=== PATIENT | male | born 1955 | race Hispanic/Latino ===

== ENCOUNTER 2023-08-13 11:25 | Emergency (ER) | payer OTHER ==
[~2023-08-13] VITALS: Ht 172.7 cm; Wt 88.9 kg
[2023-08-13 13:01] LABS: BASOPHILS # (AUTO) 0.04 K/uL (0.00-0.20); BASOPHILS % (AUTO) 0.4 % (0.0-5.0); EOSINOPHILS # (AUTO) 0.16 K/uL (0.00-0.70); EOSINOPHILS % (AUTO) 1.6 % (0.0-8.0); IMMATURE GRANULOCYTE ABSOLUTE 0.08 K/uL (0-1); LYMPHOCYTES # (AUTO) 1.5 K/uL (1.0-4.8); LYMPHOCYTES % (AUTO) 15.8 % (21.0-51.0); MEAN CORPUSCULAR HEMOGLOBIN 29.4 pg (27.0-33.0); MEAN CORPUSCULAR HGB CONC 33.9 g/dL (32.0-36.0); MEAN CORPUSCULAR VOLUME 86.6 fL (79-99); MONOCYTES # (AUTO) 0.8 K/uL (0.1-1.0); MONOCYTES % (AUTO) 7.9 % (3.0-13.0); NEUTROPHILS # (AUTO) 7.2 K/uL (1.8-7.7); NEUTROPHILS % (AUTO) 73.5 % (40.0-77.0); PLATELET COUNT (AUTO) 147 K/uL (130-400); RED BLOOD CELL COUNT(AUTO) 5.89 MIL/uL (4.50-6.20); RED CELL DISTRIBUTION WIDTH 13.2 % (11.0-15.5); WHITE BLOOD COUNT (AUTO) 9.7 K/uL (4.8-10.8)
[2023-08-13 13:12] LABS: APPEARANCE,URINE CLEAR (CLEAR); BILIRUBIN,URINE NEGATIVE (NEGATIVE); COLOR,URINE YELLOW (YELLOW); GLUCOSE, URINE (UA) >=1000 mg/dL (NEGATIVE); KETONES,URINE NEGATIVE (NEGATIVE); LEUKOCYTE ESTERASE ,URINE 25 Leu/uL (NEGATIVE); NITRATE,URINE NEGATIVE (NEGATIVE); OCCULT BLOOD,URINE LARGE (NEGATIVE); PH,URINE 5.5 (5.0-8.0); PROTEIN,URINE NEGATIVE (NEGATIVE)
[2023-08-13 13:14] LABS: ADD UA MICROSCOPIC YES
[2023-08-13 13:14] LABS: ALBUMIN 3.3 g/dL (3.5-5.0); BILIRUBIN,TOTAL 0.8 mg/dL (0.2-1.0); CREATININE 1.2 mg/dL (0.5-1.5); TOTAL PROTEIN, SERUM 6.8 g/dL (6.0-8.3)
[2023-08-13 13:15] LABS: BACTERIA,URINE RARE /HPF (None Seen); MUCUS,URINE RARE LPF (None Seen); RBC,URINE 51-100 /HPF (0-1); SQUAMOUS EPITHELIAL CELL,UR RARE /HPF (0-2)
[2023-08-13] MEDS ORDERED: MORPHINE 4 MG SYG IVP ONE (13:30)
[2023-08-13] MEDS ORDERED: ONDANSETRON 4MG INJ IVP ONE (13:30)
[2023-08-13] MEDS ORDERED: CEPH500T PO (16:25)
[2023-08-13] MEDS ORDERED: IBUP-2070 PO (16:25)
[2023-08-13 16:43] VITALS: BP 143/62; PULSE 64; RESP 18; O2SAT 98
== END 2023-08-13 16:45 | disposition home or self-care (01) ==
LOC: EDH 11:25
DX: E11.65 Type 2 diabetes mellitus with hyperglycemia (principal); N39.0 Urinary tract infection, site not specified; M47.816 Spondylosis without myelopathy or radiculopathy, lumbar region; M54.50 Low back pain, unspecified; E78.00 Pure hypercholesterolemia, unspecified; G89.29 Other chronic pain; Z90.49 Acquired absence of other specified parts of digestive tract
CPT/HCPCS: 99284; 93970; 96374; 72131; 96375; 84484; 80053; 83880; 85025; 87088; 81001; 36415; 93005; J2405; J2270

== ENCOUNTER 2024-04-07 12:38 | Emergency (ER) | payer OTHER, MEDICARE ==
[~2024-04-07] VITALS: Ht 170.2 cm; Wt 96.6 kg
[~2024-04-07 12:38] MED LIST: CEPH500T PO; IBUP-2070 PO
[2024-04-07 13:08] VITALS: BP 113/54; PULSE 91; RESP 18; O2SAT 98
[2024-04-07] MEDS: KETOROLAC 30MG VIAL (30MG/ML) IM ONE (13:15)
[2024-04-07] MEDS: ORPHENADRINE CITRATE 30 MG/ML ML IM ONE (13:16)
[2024-04-07] MEDS: TRIAMCINOLONE ACETONIDE 40 MG/ML 1ML VIAL IM ONE (13:17)
== END 2024-04-07 13:59 | disposition home or self-care (01) ==
LOC: EDH 12:38
DX: G89.29 Other chronic pain (principal); M54.50 Low back pain, unspecified; I10 Essential (primary) hypertension; E78.00 Pure hypercholesterolemia, unspecified; E11.9 Type 2 diabetes mellitus without complications
CPT/HCPCS: 99284; 96372 ×2; J3301; J1885; J2360

== ENCOUNTER → 2024-10-20 | Outpatient (CLI) | payer OTHER ==
--- NOTE | 2024-10-20 16:05 | HMCIMG ---
CT ABD/PEL WO CON RENAL/APPY HISTORY: Bladder disorder COMPARISON: None TECHNIQUE: Multiple sequential axial images of the abdomen and pelvis were obtained from the dome of the diaphragm through symphysis pubis. Patient was not given contrast through intravenous route. Oral contrast was not given. FINDINGS: No pleural effusion is seen bilaterally. There is no evidence of parenchymal disease or pulmonary nodule of the visualized lower lungs. Degenerative changes of the thoracolumbar spine are present. The heart is not enlarged. Liver measured 13 cm. Spleen is enlarged measuring 17 cm. Postcholecystectomy changes are seen. Postop changes are seen of the lumbosacral spine causing artifacts limiting evaluation. The liver, spleen, adrenal glands and pancreas are unremarkable. There is no evidence of hydronephrosis bilaterally. 8 mm left renal pelvic stone is seen. Fecal material is seen in the colon. There are normal size retroperitoneal and mesenteric lymph nodes. No ascites is seen. Atherosclerotic changes are present. Appendix is not well seen limiting evaluation. There is mild diverticulosis. Pelvic sidewalls are symmetric bilaterally. There is moderately distended. There is questionable bladder mass versus enlarged prostate with soft tissue mass at posterior aspect of the bladder. If needed, contrast-enhanced CT may be helpful. IMPRESSION: 1. Questionable bladder mass versus enlarged prostate with soft tissue mass at the posterior aspect of the bladder. If needed, contrast enhanced CT may be helpful. Left renal pelvic stone without hydronephrosis. No ascites is seen. CT was performed with one or more following dose reduction techniques: automated exposure control, adjustment of the mA and kv according to patient's size, or use of a iterative reconstruction technique.
== END | disposition home or self-care (01) ==
LOC: RAH 13:41
PROVIDERS: ATTEND Family Medicine
DX: N20.0 Calculus of kidney (principal); K57.30 Diverticulosis of large intestine without perforation or abscess without bleeding; R16.1 Splenomegaly, not elsewhere classified; N32.89 Other specified disorders of bladder; M47.815 Spondylosis without myelopathy or radiculopathy, thoracolumbar region; Z90.49 Acquired absence of other specified parts of digestive tract
CPT/HCPCS: 74176